=== PATIENT | female | born 1980 | race Two or more races ===

== ENCOUNTER 2024-10-02 09:24 | Outpatient (RCR) | payer MEDICAID, SELFPAY ==
--- NOTE | 2024-10-22 16:51 | CTCCONSULT_ITS ---
Patient: LEROY PAINTING : 1980 MR#: [id number] Page 2 of 3 CONSULTATION NOTE DATE OF CONSULTATION: 10/02/2024 NAME: LEROY PAINTING ACCOUNT: [id number] : 1980 AGE: 44 REFERRING PHYSICIAN: Yoly Ram MD PRIMARY PHYSICIAN: Yoly Ram MD REASON FOR VISIT: Iron deficiency anemia ONCOLOGY HISTORY: DIAGNOSIS: Iron deficiency anemia secondary to blood loss (chronic) [ICD10] D50.0 TREATMENT HISTORY: Care?Plan Start?Date Cycle Day Intent FERRlecit?she 10/02/2024 1 7 Maintenance HISTORY OF PRESENT ILLNESS: 44-year-old female with h/o [place] here for anemia. She have fatigue ,tiredness . OTHER MEDICAL HISTORY/CONDITIONS: Anemia? 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 control med x 5 yrs - 20yrs ago :?2 Live?Births:?2 Age?1st?:?23 MEDICATIONS: 1. omeprazole - 20 mg 1 Daily 2. Singulair - 10 mg 1 tab Daily 3. ZyrTEC - 10 mg 1 tab Daily Medications Last Reconciled by Akua Escobar RN on 10/02/2024 ALLERGIES: No Known Drug Allergies REVIEW OF SYSTEMS: A complete 14-point review of systems was performed and is negative except as noted in interval histo ry. PHYSICAL EXAMINATION: VITAL SIGNS: Temperature?99.8, B/P?128/84, Height?64?inches, Oxygen?Saturation?98% Weight?185?lbs PAIN: 0 - No pain ECOG Performance Status: 0 - Asymptomatic and fully active GENERAL APPEARANCE: Appears well, in no apparent distress, appropriately interactive. HEENT: Normocephalic, no temporal wasting, normal conjunctiva, no scleral icterus, normal hearing, li ps without lesions, neck normal range of motion. CARDIOVASCULAR: Not assessed. PULMONARY: Normal respiratory effort, no respiratory distress or use of accessory muscles, speaking i n full sentences, no tachypnea. EXTREMITIES: No pedal edema or cyanosis. SKIN: Normal skin appearance. NEUROLOGIC: Alert and oriented x4. PSHYCHIATRIC: Appropriate affect, mood normal, behavior normal, intact thought and speech. LABORATORY DATA: I have personally reviewed and interpreted each of the patient?s relevant lab tests, abnormal finding s are below: Date ASSESSMENT/PLAN: Iron deficiency anemia ORDERS: Cbc,cmp,ferritin,iron panel ,ldh and haptoglobin RETURN TO CLINIC: 2 months BILLING AND COMPLIANCE: I reviewed external records from providers outside my specialty as summarized above. I spent a total of 50 minutes on this patient?s care on the day of their visit excluding time spent related to any bi lled procedures. This time includes time spent with the patient as well as time spent documenting in the medical record, reviewing patients records and tests, obtaining history, placing orders, communi cating with other healthcare professionals, counseling the patient, family or caregiver, and/or care coordination for the diagnoses above. Electronically Signed by: Enio Rivero MD T: 4:48 PM CC: PCP: Yoly Ram Referring: Yoly Ram This document was completed utilizing speech recognition software. Grammatical errors, random word in sertions, pronoun errors, and incomplete sentences are an occasional consequence of this system due t o software limitations, ambient noise, and hardware issues. Any formal questions or concerns about th e content, text or information contained within the body of this dictation should be directly address ed to the provider for clarification.
== END 2024-10-16 23:59 | disposition home or self-care (01) ==
LOC: SCTC 09:24
PROVIDERS: Visit Provider Internal Medicine Hematology & Oncology
DX: D50.9 Iron deficiency anemia, unspecified (principal)
CPT/HCPCS: 99213; G0463

== ENCOUNTER 2024-10-30 13:05 | Outpatient (RCR) | payer MEDICAID, SELFPAY | END 2024-11-16 23:59 | disposition home or self-care (01) | LOC: SCTC 13:05 | PROVIDERS: PCP Physician Assistant Medical; Referring Provider Physician Assistant Medical; Visit Provider Internal Medicine Hematology & Oncology | DX: Z53.8 Procedure and treatment not carried out for other reasons (principal) | CPT/HCPCS: J2916; J7050 ==

== ENCOUNTER 2024-12-12 13:20 | Outpatient (RCR) | payer MEDICAID, SELFPAY | END 2024-12-14 23:59 | disposition home or self-care (01) | LOC: SCTC 13:20 | PROVIDERS: PCP Physician Assistant Medical; Referring Provider Physician Assistant Medical; Visit Provider Internal Medicine Hematology & Oncology | DX: D50.9 Iron deficiency anemia, unspecified (principal) | CPT/HCPCS: 96365; 96375; J2916; J2919; J3490; J7040; J7050 ==

== ENCOUNTER → 2024-12-18 | Outpatient (CLI) | payer MEDICAID, SELFPAY ==
--- NOTE | 2024-12-18 11:15 | XR_ITS ---
Examination: Screening digital mammography, bilateral Computer aided detection 3-D breast Tomosynthesis, bilateral Date and time of exam: December 18, 2024 1108 hours Compared to mammograms dating to December 30, 2021 Indication: Screening Technique: Nonmagnified MLO, CC views of the breasts to been obtained, reconstructed from 3-D Tomosynthesis images. R2 computer aided detection program utilized for evaluation of suspicious masses and/or abnormal calcifications. 3-D Tomosynthesis images obtained. Findings: The breasts are heterogeneously dense, which may obscure small masses Benign calcifications No interval suspicious masses Impression: BI-RADS category II: Benign Findings. Recommend 1 year follow-up mammogram.
== END | disposition home or self-care (01) ==
LOC: CDIM 11:03
PROVIDERS: Referring Provider Physician Assistant Medical; Visit Provider Physician Assistant Medical
DX: Z12.31 Encounter for screening mammogram for malignant neoplasm of breast (principal); R92.323 Mammographic fibroglandular density, bilateral breasts; R92.1 Mammographic calcification found on diagnostic imaging of breast
CPT/HCPCS: 77063; 77067

== ENCOUNTER 2025-01-10 13:27 | Outpatient (RCR) | payer MEDICAID, SELFPAY | END 2025-01-14 23:59 | disposition home or self-care (01) | LOC: SCTC 13:27 | PROVIDERS: PCP Physician Assistant Medical; Referring Provider Physician Assistant Medical; Visit Provider Internal Medicine Hematology & Oncology | DX: D50.9 Iron deficiency anemia, unspecified (principal); N92.0 Excessive and frequent menstruation with regular cycle | CPT/HCPCS: 96365; 96375; J2916; J2919; J3490; J7040; J7050 ==

== ENCOUNTER 2025-02-13 13:54 | Outpatient (RCR) | payer MEDICAID, SELFPAY | END 2025-02-13 23:59 | disposition home or self-care (01) | LOC: SCTC 13:54 | PROVIDERS: PCP Physician Assistant Medical; Referring Provider Obstetrics & Gynecology; Visit Provider Nurse Practitioner Family | DX: D50.9 Iron deficiency anemia, unspecified (principal) | CPT/HCPCS: 96365; 99212; J2916; J7040; J7050; G0463 ==

== ENCOUNTER 2025-03-13 13:51 | Outpatient (RCR) | payer MEDICAID, SELFPAY | END 2025-03-16 23:59 | disposition home or self-care (01) | LOC: SCTC 13:51 | PROVIDERS: PCP Physician Assistant Medical; Referring Provider Physician Assistant Medical; Visit Provider Nurse Practitioner Family | DX: D50.9 Iron deficiency anemia, unspecified (principal) | CPT/HCPCS: 96365; J2916; J7050 ==

== ENCOUNTER 2025-03-28 09:12 | Outpatient (RCR) | payer MEDICAID, SELFPAY | END 2025-04-15 23:59 | disposition home or self-care (01) | LOC: SCTC 09:12 | PROVIDERS: PCP Family Medicine; Referring Provider Family Medicine; Visit Provider Nurse Practitioner Family | DX: D50.9 Iron deficiency anemia, unspecified (principal) | CPT/HCPCS: 96365; A4216; J2916; J7040; J7050 ==

== ENCOUNTER 2025-04-25 13:44 | Emergency (ER) | payer MEDICAID, SELFPAY ==
[2025-04-25] VITALS (12 sets, daily range): BP systolic 98–145; BP diastolic 57–83; PULSE 77–99; RESP 16–19; TEMP 36.6–37.5; O2SAT 96–100; BMI 31.9
--- NOTE | 2025-04-25 14:00 | PD.EDRME ---
Rapid Medical Screening Exam RME Arrival date/time: 04/25/25 13:44 44-year-old female presents to the emergency department today stating she was sent by her PCP for low hemoglobin. Patient reports that she had her IUD replaced and has been bleeding since April 19 Chief Complaint: Recheck/Abnormal Lab/Rx Vital signs: Vital Signs Temperature 98.4 F 04/25/25 13:54 Pulse Rate 99 04/25/25 13:54 Respiratory Rate 18 04/25/25 13:54 Blood Pressure 145/81 H 04/25/25 13:54 Pulse Oximetry (%) 100 04/25/25 13:54 Oxygen Delivery Method Room Air 04/25/25 13:54
[2025-04-25 14:25] LABS: Basophils # (Auto) 0.0 Thou/mm3 (0.0-0.2); Basophils % (Auto) 0 % (0-2.5); Eosinophils # (Auto) 0.0 Thou/mm3 (0.0-0.5); Eosinophils % (Auto) 0 % (0-10); Immature Granulocytes Auto 0.06 Thou/mm3 (0.00-0.00); Lymphocytes # (Auto) 2.1 Thou/mm3 (1.0-4.8); Lymphocytes % (Auto) 18 % (10-50); Mean Corpuscular HGB Conc 33.7 g/dl (31.0-37.0); Mean Corpuscular Hemoglobin 30.3 pg (25.0-35.0); Mean Corpuscular Volume 90 fL (80-100); Monocytes # (Auto) 0.8 Thou/mm3 (0.0-0.8); Monocytes % (Auto) 6 % (0-12); Neutrophils # (Auto) 9.0 Thou/mm3 (1.8-7.7); Neutrophils % (Auto) 75 % (37-80); Nucleated Red Blood Cell # 0.00 Thou/mm3 (0.00-0.00); Nucleated Red Blood Cell % 0 /100 WBC (0); Platelet Count 293 Thou/mm3 (140-440); RDW Standard Deviation 51.0 fL (36.4-46.3); Red Blood Count 2.08 Miln/mm3 (4.00-5.20); White Blood Count 12.0 Thou/mm3 (3.6-11.0)
[2025-04-25 14:38] LABS: Hematocrit 18.7 % (36.0-46.0); Hemoglobin 6.3 g/dL (12.0-16.0)
[2025-04-25 14:40] LABS: INR 0.9 (0.9-1.3); Partial Thromboplastin Time 22.9 Seconds (22.0-36.0); Prothrombin Time 10.1 Seconds (9.0-12.2)
[2025-04-25 14:43] LABS: Alanine Aminotransferase 12 U/L (10-49); Albumin, Serum 3.7 gm/dL (3.5-5.0); Albumin/Globulin Ratio 1.6 (1.2-2.2); Alkaline Phosphatase 48 U/L (46-116); Anion Gap 7 (7-16); Aspartate Amino Transferase 14 U/L (0-34); BUN/Creatinine Ratio 10 Ratio (12-20); Bilirubin,Total 0.2 mg/dL (0.3-1.2); Blood Urea Nitrogen 6 mg/dL (9-23); Calcium 8.5 mg/dL (8.3-10.6); Calcium (Corrected) 8.7 mg/dL (8.5-10.1); Carbon Dioxide 28.5 mMol/L (20.0-31.0); Chloride 107 mMol/L (98-107); Creatinine (Component) 0.6 mg/dL (0.6-1.3); Estimated Creatinine Clearance 127.0 mL/min (>60); Globulin 2.3 gm/dL (2.3-3.5); Glucose 111 mg/dL (74-106); Osmolality,Calculated 281 (275-295); Potassium 3.8 mMol/L (3.4-5.1); Sodium 142 mMol/L (136-145); Total Protein 6.0 gm/dL (5.7-8.2); eGFR > 60 See Note
[2025-04-25 14:50] LABS: HCG,Qualitative Serum Negative
[2025-04-25 14:59] LABS: Ferritin 8 ng/mL (7.3-270.7); Iron 11 mcg/dL (50-170); Percent Iron Saturation 3 % (20-55); Total Iron Binding Capacity 362 mcg/dL (250-425); Unsaturated Iron Binding 351 (225-295)
--- NOTE | 2025-04-25 15:06 | PD.EDRECHK ---
ED Recheck Abnl Lab Rx-RME/HPI General Chief Complaint: Recheck/Abnormal Lab/Rx Stated Complaint: Hemoglobin is 6, mild OGOD Time Seen by Provider: 04/25/25 15:04 Arrival date/time: 04/25/25 13:44 RME / HPI RME / HPI narrative: 44-year-old female presents to the emergency department today stating she was sent by her PCP for low hemoglobin. Patient reports that she had her IUD replaced and has been bleeding since April 19. It was heavy for the first 4 days however yesterday and today is very light. Denies any other complaints no medications taken prior to arrival. Patient spoke with Dr Maldonado, and was advised that it was a normal type of bleeding post IUD insertion. Related Data Previous Rx's ?Medication ?Instructions ?Recorded ferrous sulfate 324 mg (65 mg 324 mg PO BID #60 tabs 04/25/25 iron) tablet,delayed release Allergies Allergy/AdvReac Type Severity Reaction Status Date / Time No Known Allergies Allergy Verified 04/25/25 13:52 Review of Systems Review of Systems Narrative Review of Systems: Review of system reviewed and within normal limits except mentioned in HPI ED Exam Narrative Physical exam: VITAL SIGNS: Reviewed. GENERAL APPEARANCE: Alert and interactive, follows commands, no acute distress, HEAD AND FACE: Non-traumatic. ENT: PERRL, pale conjunctiva, eyelid no trauma, Mucous membrane moist. NECK: Supple, nontender, no nuchal rigidity. CHEST: No tenderness, no crepitus, no paradoxical movement, no retractions. LUNGS: Clear, well ventilated, symmetric, no rales, no wheezing, no ronchi, no stridor, good breath sounds bilaterally. HEART: Regular rate, regular rhythm, no murmur, no gallops. ABDOMEN: Soft, positive bowel sounds, nondistended, no guarding, nontender, no rebound, no masses, RECTAL: Deferred. GENITAL: Deferred. NEUROLOGICAL: Gross motor function intact sensory function intact, Appropriate for age. MUSCULOSKELETAL: low back nontender, full range of motion. EXTREMITIES: Nontender, full range of motion. SKIN: Color pink, dry, no rash, no lacerations, no abrasions, no contusions. LYMPHATICS: Deferred. Course Quality Measures none Orders Category Date Time Status Insert IV NOW Care 04/25/25 13:59 Active Transfuse,blood/blood products NOW Care 04/25/25 14:47 Active CBC Stat Lab 04/25/25 14:08 Completed Comprehensive Metabolic Panel Stat Lab 04/25/25 14:08 Completed Ferritin Stat Lab 04/25/25 14:08 Completed HCG,Qualitative Serum Stat Lab 04/25/25 14:08 Completed Iron Panel Stat Lab 04/25/25 14:08 Completed Partial Thromboplastin Time Stat Lab 04/25/25 14:08 Completed Path Review Blood Smear Stat Lab 04/25/25 14:08 Completed Prothrombin Time with INR Stat Lab 04/25/25 14:08 Completed Type and Screen Stat Lab 04/25/25 14:08 Completed prbc [Red Blood Cells] Stat Lab 04/25/25 14:08 Completed Vital Signs Vital signs: Vital Signs Temperature 98.4 F 04/25/25 13:54 Pulse Rate 99 04/25/25 13:54 Respiratory Rate 18 04/25/25 13:54 Blood Pressure 145/81 H 04/25/25 13:54 Pulse Oximetry (%) 100 04/25/25 13:54 Oxygen Delivery Method Room Air 04/25/25 13:54 Recheck / Abnormal Lab / Rx MDM Narrative MDM Narrative:: 44-year-old female presents to the emergency department today stating she was sent by her PCP for low hemoglobin. Patient reports that she had her IUD replaced and has been bleeding since April 19. It was heavy for the first 4 days however yesterday and today is very light. Denies any other complaints no medications taken prior to arrival. Patient spoke with Dr Maldonado, and was advised that it was a normal type of bleeding post IUD insertion. Patient hemoglobin was noted to be 6.3, hematocrit of 18.7. Patient received 2 units of packed RBC. Patient tolerated blood transfusion well. With no posttransfusion reaction noted. Disposition Home. Was advised to follow-up. Dr Maldonado [facility] regarding heavy menses post IUD insertion in few days Patient data External records reviewed:: None Clinical information provided by:: patient Social determinants that could affect healthcare access:: none Patient has the following chronic illnesses:: None How is presenting disease/condition affected by chronic disease/condition?: no chronic disease Evaluation data The following diagnostics were reviewed and interpreted by me:: lab results Lab and/or radiology exams considered but not ordered:: None Interpretation Summary: See results MDM Medications / Prescriptions Medications or Prescriptions considered but not ordered:: None Medication administrations:: 2 units of packed RBC Consultations Consultation(s) initiated? (list below): No Diagnosis Recheck Differential Diagnosis: other (Anemia, dysfunctional uterine bleeding, menometrorrhagia) Most likely diagnosis given after review of the tests above:: Anemia Admission Indicated Admission indicated?: not indicated Explain why admission is indicated or not indicated:: Stable Admission Request Was there a request for admission?: No Disposition Plan Disposition Plan: Discharge Discharge Attestation Discharge Attestation: The patient and all family members were given an opportunity to ask questions and understood the discharge instructions. Discharge instructions specifically effects, indications for sooner follow up or return to the emergency department, and the expected course of current diagnosis. Patient condition: Stable Discharge Plan Plan Patient Disposition: HOME (Self Care) Discharge Disposition comment: Stable Prescriptions/Referrals Prescriptions/Med Rec: New ferrous sulfate 324 mg (65 mg iron) tablet,delayed release (DR/EC) 324 mg PO BID Qty: 60 0RF Referrals: Sil Ram PA-C [Primary Care Provider] - In 1 week Problem List Clinical Impression: Iron deficiency anemia, Heavy menses due to IUD Patient/Caregiver Discharge Instructions Discharge Activity: activity as tolerated Education Materials: Anemia Additional Instructions: Thank you for the opportunity for serving you today. You are stable for discharged . You are advised to: Follow-up with your [facility], if your vaginal bleeding is getting worse. Return to ED for worsening of symptoms Increase oral fluids Take medication as prescribed Print Language: Namibian Stand Alone Forms: Nguyen Award Info., Patient Portal Info Letter
[2025-04-25 15:24] LABS: Path Review Blood Smear Sent to Pathologist
== END 2025-04-25 22:12 | disposition home or self-care (01) ==
PROVIDERS: Nurse Practitioner Primary Care; Emergency Provider Emergency Medicine; PCP Physician Assistant Medical
DX: D50.9 Iron deficiency anemia, unspecified (principal); N92.0 Excessive and frequent menstruation with regular cycle
CPT/HCPCS: 36415; 36430; 80053; 82728; 83540; 83550; 84703; 85025; 85610; 85730; 86850; 86900; 86901; 86923; 99283; P9016

== ENCOUNTER 2025-04-29 15:29 | Emergency (ER) | payer MEDICAID, SELFPAY ==
[2025-04-29 15:52] VITALS: BP 131/78; PULSE 83; RESP 18; TEMP 37.5; O2SAT 100; BMI 33.1
--- NOTE | 2025-04-29 16:34 | EDNOTE_ITS ---
ED Recheck Abnl Lab Rx-RME/HPI General Chief Complaint: Recheck/Abnormal Lab/Rx Stated Complaint: Low iron, dizzy, GOOD Time Seen by Provider: 04/29/25 16:26 Arrival date/time: 04/29/25 15:29 RME / HPI RME / HPI narrative: 44-year-old female presents to the ED with a complaint of dizziness and headache. She was seen here last and diagnosed with anemia due to her hemoglobin of 6.3. She received 2 units of PRBCs at that time. She was feeling good the next day but for the past 2 days she has had a headache and some lightheadedness. He recently had an IUD replaced. She had a very heavy menstrual starting on April 19 that lasted for approximately 5 days and then it slowed down to a normal menstrual period yesterday and today she is only been having minimal bleeding. She denies any fever or chills, abdominal pain or dysuria. Related Data Previous Rx's ?Medication ?Instructions ?Recorded ferrous sulfate 324 mg (65 mg 324 mg PO BID #60 tabs 0 04/25/25 iron) tablet,delayed release amoxicillin 875 mg-potassium 1 tab PO BID #20 tabs clavulanate 125 mg tablet cetirizine 10 mg tablet (Zyrtec) 10 mg PO QDAY PRN all ergy symptoms 04/29/25 #30 tabs Allergies Allergy/AdvReac Type Severity Reaction Status Date / Time No Known Allergies Allergy Verified 04/29/25 15:34 Review of Systems Review of Systems Systems Reviewed: All systems reviewed, normal except as documented Past Medical History Past Medical History CARDIAC: Negative Congestive Heart Failure RESPIRATORY: Negative Chronic Obstructive Pulmonary Disease (COPD) GASTROINTESTINAL: Positive Gastroesophageal Reflux Disease GENITOURINARY: Negative Renal Disease ENDOCRINE: Negative Diabetes Mellitus Type 1 or Diabetes Mellitus Type 2 Social History SMOKING STATUS: Never smoker ED Exam Narrative Physical exam: Alert and oriented, very pleasant 44-year-old female, no acute distress. Conjun ctiva is pale, neck is supple. Regular rate and rhythm, lungs are clear, abdomen is soft and nontender. No CVA tenderness noted. Moves all extremities well. Course Course Course Narrative: Vital signs blood pressure 131/78, pulse 83, respirations 18 and nonlabored, temp 99.5, O2 sat 100% on room air. CBC reveals a mildly elevated white count of 13.1, low H&H of 8.4/25.1 with normal platelets. This hemoglobin and hematocrit did not indicate the need for a transfusion at this time. Patient was advised to follow-up with her primary care physician for regular weekly checks of her hemoglobin with a lab draw. Upon discharge, patient states she has been having a right-sided headache with postnasal drip and the need to clear her throat. She denies any fever or chills but is felt hot on her forehead. Quality Measures none Orders Category Date Time Status CBC Stat Lab 04/29/25 16:47 Completed Vital Signs Vital signs: Vital Signs Temperature 99.5 F 04/29/25 15:52 Pulse Rate 83 04/29/25 15:52 Respiratory Rate 18 04/29/25 15:52 Blood Pressure 131/78 H 04/29/25 15:52 Pulse Oximetry (%) 100 04/29/25 15:52 Oxygen Delivery Method Room Air 04/29/25 15:52 Recheck / Abnormal Lab / Rx Patient data External records reviewed:: [facility] previous records Clinical information provided by:: patient Social determinants that could affect healthcare access:: none Patient has the following chronic illnesses:: Anemia, iron deficiency How is presenting disease/condition affected by chronic disease/condition?: caused by Evaluation data The following diagnostics were reviewed and interpreted by me:: lab results Lab and/or radiology exams considered but not ordered:: N/A Interpretation Summary: As noted above Medications / Prescriptions Medications or Prescriptions considered but not ordered:: N/A Medication administrations:: N/A Consultations Consultation(s) initiated? (list below): No Diagnosis Recheck Differential Diagnosis: other (Encounter for lab recheck for possible blood transfusion.) Most likely diagnosis given after review of the tests above:: Anemia and sinusitis. Admission Indicated Admission indicated?: not indicated Explain why admission is indicated or not indicated:: Patient is stable for discharge Admission Request Was there a request for admission?: No Admission Attestation Admission request attestation: N/A Disposition Plan Disposition Plan: Discharge Discharge Attestation Discharge Attestation: The patient and all family members were given an opportunity to ask questions and understood the discharge instructions. Discharge instructions specifically effects, indications for sooner follow up or return to the emergency department, and the expected course of current diagnosis. Patient condition: Stable Discharge Plan Plan Patient Disposition: HOME (Self Care) Discharge Disposition comment: Stable Prescriptions/Referrals Prescriptions/Med Rec: New amoxicillin-pot clavulanate 875-125 mg tablet 1 tab PO BID Qty: 20 0RF cetirizine [Zyrtec] 10 mg tablet 10 mg PO QDAY PRN (Reason: allergy symptoms) Qty: 30 0RF No Action ferrous sulfate 324 mg (65 mg iron) tablet,delayed release (DR/EC) 324 mg PO BID Qty: 60 0RF Referrals: Sil Ram PA-C [Primary Care Provider] - In 1 week Problem List Clinical Impression: Iron deficiency anemia, Heavy menses due to IUD, Sinusitis Patient/Caregiver Discharge Instructions Education Materials: ED Anemia, Iron-Deficiency (Adult), ED Dysfunctional Uterine Bleeding, ED Sinusitis (Antibiotic Treatment) Additional Instructions: Take the antibiotics as prescribed and complete the course even though you may be feeling better. Take Tylenol for pain control. Follow-up with your primary care physician in 24 to 48 hours. Return to the ED for any new or worsening symptoms. Print Language: Nepalese Stand Alone Forms: Nguyen Award Info., Patient Portal Info Letter PA/EMBEDDED SOFTWARE MANAGER Supervising Physician PA/EMBEDDED SOFTWARE MANAGER Supervising Physician: Dr. Lind
[2025-04-29 16:55] LABS: Basophils # (Auto) 0.0 Thou/mm3 (0.0-0.2); Basophils % (Auto) 0 % (0-2.5); Eosinophils # (Auto) 0.0 Thou/mm3 (0.0-0.5); Eosinophils % (Auto) 0 % (0-10); Hematocrit 25.1 % (36.0-46.0); Immature Granulocytes Auto 0.06 Thou/mm3 (0.00-0.00); Lymphocytes # (Auto) 1.8 Thou/mm3 (1.0-4.8); Lymphocytes % (Auto) 14 % (10-50); Mean Corpuscular HGB Conc 33.5 g/dl (31.0-37.0); Mean Corpuscular Hemoglobin 28.9 pg (25.0-35.0); Mean Corpuscular Volume 86 fL (80-100); Monocytes # (Auto) 0.7 Thou/mm3 (0.0-0.8); Monocytes % (Auto) 5 % (0-12); Neutrophils # (Auto) 10.5 Thou/mm3 (1.8-7.7); Neutrophils % (Auto) 80 % (37-80); Nucleated Red Blood Cell # 0.00 Thou/mm3 (0.00-0.00); Nucleated Red Blood Cell % 0 /100 WBC (0); Platelet Count 353 Thou/mm3 (140-440); RDW Standard Deviation 45.7 fL (36.4-46.3); Red Blood Count 2.91 Miln/mm3 (4.00-5.20); White Blood Count 13.1 Thou/mm3 (3.6-11.0)
[2025-04-29 16:58] LABS: Hemoglobin 8.4 g/dL (12.0-16.0)
== END 2025-04-29 17:49 | disposition home or self-care (01) ==
PROVIDERS: Physician Assistant; Emergency Provider Emergency Medicine; PCP Physician Assistant Medical
DX: D50.9 Iron deficiency anemia, unspecified (principal); N92.0 Excessive and frequent menstruation with regular cycle; J32.9 Chronic sinusitis, unspecified
CPT/HCPCS: 36415; 85025; 99283

== ENCOUNTER 2025-05-15 10:37 | Outpatient (RCR) | payer MEDICAID, SELFPAY | END 2025-05-16 23:59 | disposition home or self-care (01) | LOC: SCTC 10:37 | PROVIDERS: PCP Family Medicine; Referring Provider Family Medicine; Visit Provider Nurse Practitioner Family | DX: D50.9 Iron deficiency anemia, unspecified (principal); N92.4 Excessive bleeding in the premenopausal period; K29.70 Gastritis, unspecified, without bleeding | CPT/HCPCS: 99212; G0463 ==

== ENCOUNTER 2025-06-10 13:46 | Outpatient (RCR) | payer MEDICAID, SELFPAY | END 2025-06-16 23:59 | disposition home or self-care (01) | LOC: SCTC 13:46 | PROVIDERS: PCP Family Medicine; Referring Provider Nurse Practitioner Family; Visit Provider Nurse Practitioner Family | DX: D50.9 Iron deficiency anemia, unspecified (principal); N92.0 Excessive and frequent menstruation with regular cycle; K29.70 Gastritis, unspecified, without bleeding | CPT/HCPCS: 96365; J2916; J7040; J7050 ==

== ENCOUNTER 2025-06-19 14:25 | Outpatient (RCR) | payer MEDICAID, SELFPAY ==
[2025-06-18 16:13] LABS: Basophils # (Auto) 0.0 Thou/mm3 (0.0-0.2); Basophils % (Auto) 0 % (0-2.5); Eosinophils # (Auto) 0.0 Thou/mm3 (0.0-0.5); Eosinophils % (Auto) 0 % (0-10); Hematocrit 32.7 % (36.0-46.0); Hemoglobin 10.1 g/dL (12.0-16.0); Immature Granulocytes Auto 0.02 Thou/mm3 (0.00-0.00); Lymphocytes # (Auto) 1.7 Thou/mm3 (1.0-4.8); Lymphocytes % (Auto) 19 % (10-50); Mean Corpuscular HGB Conc 30.9 g/dl (31.0-37.0); Mean Corpuscular Hemoglobin 26.2 pg (25.0-35.0); Mean Corpuscular Volume 85 fL (80-100); Monocytes # (Auto) 0.5 Thou/mm3 (0.0-0.8); Monocytes % (Auto) 6 % (0-12); Neutrophils # (Auto) 6.4 Thou/mm3 (1.8-7.7); Neutrophils % (Auto) 74 % (37-80); Nucleated Red Blood Cell # 0.00 Thou/mm3 (0.00-0.00); Nucleated Red Blood Cell % 0 /100 WBC (0); Platelet Count 300 Thou/mm3 (140-440); RDW Standard Deviation 60.4 fL (36.4-46.3); Red Blood Count 3.85 Miln/mm3 (4.00-5.20); White Blood Count 8.7 Thou/mm3 (3.6-11.0)
[2025-06-18 16:38] LABS: Alanine Aminotransferase 16 U/L (10-49); Albumin, Serum 4.1 gm/dL (3.5-5.0); Albumin/Globulin Ratio 1.7 (1.2-2.2); Alkaline Phosphatase 47 U/L (46-116); Anion Gap 10 (7-16); Aspartate Amino Transferase 16 U/L (0-34); BUN/Creatinine Ratio 9 Ratio (12-20); Bilirubin,Total 0.2 mg/dL (0.3-1.2); Blood Urea Nitrogen 6 mg/dL (9-23); Calcium 9.5 mg/dL (8.3-10.6); Calcium (Corrected) 9.5 mg/dL (8.5-10.1); Carbon Dioxide 25.0 mMol/L (20.0-31.0); Chloride 107 mMol/L (98-107); Creatinine (Component) 0.7 mg/dL (0.6-1.3); Globulin 2.4 gm/dL (2.3-3.5); Glucose 107 mg/dL (74-106); Osmolality,Calculated 280 (275-295); Potassium 3.4 mMol/L (3.4-5.1); Sodium 142 mMol/L (136-145); Total Protein 6.5 gm/dL (5.7-8.2); eGFR > 60 See Note
== END 2025-07-16 23:59 | disposition home or self-care (01) ==
LOC: SCTC 14:25
PROVIDERS: PCP Family Medicine; Referring Provider Family Medicine; Visit Provider Nurse Practitioner Family
DX: D64.9 Anemia, unspecified (principal); Z87.42 Personal history of other diseases of the female genital tract
CPT/HCPCS: 80053; 85025; 96365; 99212; J2916; J3490; J7040; G0463

== ENCOUNTER 2025-08-05 09:30 | Outpatient (RCR) | payer MEDICAID, SELFPAY | END 2025-08-16 23:59 | disposition home or self-care (01) | LOC: SCTC 09:30 | PROVIDERS: PCP Physician Assistant Medical; Referring Provider Nurse Practitioner Family; Visit Provider Nurse Practitioner Family | DX: D50.0 Iron deficiency anemia secondary to blood loss (chronic) (principal); N93.9 Abnormal uterine and vaginal bleeding, unspecified | CPT/HCPCS: 99212; G0463 ==

== ENCOUNTER 2025-08-07 20:51 | Emergency (ER) | payer MEDICAID, SELFPAY ==
[2025-08-07 20:53] VITALS: BMI 32.9
--- NOTE | 2025-08-07 21:26 | XR_ITS ---
Examination: Pelvic ultrasound, transabdominal, complete Technique: Transabdominal ultrasound of the pelvis performed using grayscale imaging Date and time of exam: August 07, 2025, 2133 hours INDICATIONS: Removal intrauterine device 2 days ago followed by vaginal bleeding FINDINGS: Uterus 10.4 cm Uterine body area of fibroid degeneration 20 x 16 x 18 mm Endometrial stripe 0.8 cm Ovaries obscured by bowel gas Mild free fluid in the cul-de-sac IMPRESSION: Small area of uterine fibroid degeneration 20 x 16 x 18 mm
--- NOTE | 2025-08-07 21:29 | PD.EDVAGBL ---
ED OB Contraction Preg RMI/HPI General Chief complaint: Vaginal Bleeding Stated complaint: POSS ANEMIA HX OF VAG BLEEDING Time Seen by Provider: 08/07/25 21:11 Arrival date/time: 08/07/25 20:51 Limitations: no limitations RME / HPI RME / HPI Narrative: Patient is a 45-year-old female with medical history notable for abnormal vaginal bleeding present emergency department concerns for persistent abnormal vaginal bleeding. Patient states that since she had an IUD placed she has had abnormal vaginal bleeding. She required blood transfusions in the past. She had her IUD removed on Tuesday, had minimal bleeding and then has significant bleeding earlier today however the bleeding has since slowed down significantly. Patient did feel mildly lightheaded. Feels better. Patient denies any abdominal pain. No discharge. Denies fevers, chills, nausea, vomiting. Patient does not have any allergies to medications. Related Data Previous Rx's ?Medication ?Instructions ?Recorded ferrous sulfate 324 mg (65 mg 324 mg PO BID #60 tabs 04/25/25 iron) tablet,delayed release amoxicillin 875 mg-potassium 1 tab PO BID #20 tabs 04/29/25 clavulanate 125 mg tablet cetirizine 10 mg tablet (Zyrtec) 10 mg PO QDAY PRN allergy symptoms 04/29/25 #30 tabs Allergies Allergy/AdvReac Type Severity Reaction Status Date / Time No Known Allergies Allergy Verified 08/07/25 20:56 ED Exam General Limitations: Present no limitations General appearance: Present alert and in no apparent distress Head Head exam: Present atraumatic and normocephalic Eye Eye exam: Present normal appearance and PERRL ENT ENT exam: Present normal exam and normal oropharynx Neck Neck exam: Present normal inspection and full ROM Chest Chest inspection: Present normal inspection; Absent symmetric chest wall rise Respiratory Respiratory exam: Present normal lung sounds bilaterally; Absent respiratory distress Cardiovascular Cardiovascular exam: Present regular rate and normal rhythm Abdominal Exam Abdominal exam: Present soft; Absent distention or tenderness Back Exam Back exam: Present normal inspection Neurological Exam Neurological exam: Present alert and other (No focal neurodeficits) Course Quality Measures none Orders Category Date Time Status US pelvic complete Stat Exams 08/07/25 21:26 Completed Beta HCG,Quantitative Stat Lab 08/07/25 21:19 Completed CBC Stat Lab 08/07/25 21:19 Completed CMP [Comprehensive Metabolic Panel] Stat Lab 08/07/25 21:19 Completed PT [Prothrombin Time with INR] Stat Lab 08/07/25 21:19 Received UA, C/S IF [Urinalysis, C/S if Indicated] Stat Lab 08/07/25 21:29 Completed Vital Signs Vital signs: Vital Signs Temperature 98.4 F 08/07/25 21:33 Pulse Rate 101 H 08/07/25 21:33 Respiratory Rate 18 08/07/25 21:33 Blood Pressure 133/85 H 08/07/25 21:33 Pulse Oximetry (%) 98 08/07/25 21:33 Oxygen Delivery Method Room Air 08/07/25 21:33 Vaginal Bleeding MDM Narrative MDM Narrative: Patient is a 45-year-old female with medical history notable for abnormal uterine bleeding, anemia to the emergency department with concerns for recurrence of dysfunctional uterine bleeding. Vital signs and exam as listed. Concern for , miscarriage, urinary tract infection, fibroids among others. Vital signs and exam as listed.4 Ordered labs. Originally ordered an ultrasound of the pelvis however I canceled it given that patient has a known history of dysfunctional uterine bleeding secondary to our ED and does not have any abdominal pain. Labs without leukocytosis,, no left shift. Patient's hemoglobin is 8.8, it was 10 in June. Patient heart rate was 101, blood pressure was 133/85. Given that patient's bleeding has stopped significantly and she is only spotting right now we will hold off on transfusion. Advised patient that it is important that she return immediately if the bleeding recurs, gets worse, she feels lightheaded or any other symptom of concern. Patient is to follow-up with her apron cleaner within the next 1 to 2 days. On reevaluation patient hemodynamically stable not in distress. Will discharge to home with close return precautions and follow-up with her providers Patient data External records reviewed:: [facility] previous records Clinical information provided by:: patient Social determinants that could affect healthcare access:: none Patient has the following chronic illnesses:: Anemia How is presenting disease/condition affected by chronic disease/condition?: exacerbated by Evaluation data The following diagnostics were reviewed and interpreted by me:: lab results Lab and/or radiology exams considered but not ordered:: None Interpretation Summary: See [facility] Medications / Prescriptions Medications or Prescriptions considered but not ordered:: None Medication administrations:: See above if any Consultations Consultation(s) initiated? (list below): No Diagnosis Vaginal Bleeding Differential Diagnosis: other Most likely diagnosis given after review of the tests above:: Dysfunctional uterine bleeding Admission Indicated Admission indicated?: not indicated Admission Request Was there a request for admission?: No Disposition Plan Disposition Plan: Discharge Discharge Attestation Discharge Attestation: The patient and all family members were given an opportunity to ask questions and understood the discharge instructions. Discharge instructions specifically effects, indications for sooner follow up or return to the emergency department, and the expected course of current diagnosis. Patient condition: Stable Discharge Plan Plan Patient Disposition: HOME (Self Care) Prescriptions/Referrals Prescriptions/Med Rec: No Action ferrous sulfate 324 mg (65 mg iron) tablet,delayed release (DR/EC) 324 mg PO BID Qty: 60 0RF amoxicillin-pot clavulanate 875-125 mg tablet 1 tab PO BID Qty: 20 0RF cetirizine [Zyrtec] 10 mg tablet 10 mg PO QDAY PRN (Reason: allergy symptoms) Qty: 30 0RF Problem List Clinical Impression: Vaginal bleeding Patient/Caregiver Discharge Instructions Education Materials: Understanding Uterine Bleeding Additional Instructions: Please follow-up with your primary care doctor as well as apron cleaner within the next 1 to 2 days. I recommend that you do not get an IUD anymore given that your abnormal vaginal bleeding is associated with the use of your IUD. Return immediately if you have worsening symptoms, shortness of breath, feel lightheaded or any other symptom of concern. Print Language: Peruvian Stand Alone Forms: [employer] Award Info., Patient Portal Info Letter
[2025-08-07 21:31] LABS: Basophils # (Auto) 0.0 Thou/mm3 (0.0-0.2); Basophils % (Auto) 0 % (0-2.5); Eosinophils # (Auto) 0.1 Thou/mm3 (0.0-0.5); Eosinophils % (Auto) 1 % (0-10); Hematocrit 27.1 % (36.0-46.0); Immature Granulocytes Auto 0.02 Thou/mm3 (0.00-0.00); Lymphocytes # (Auto) 2.8 Thou/mm3 (1.0-4.8); Lymphocytes % (Auto) 34 % (10-50); Mean Corpuscular HGB Conc 32.5 g/dl (31.0-37.0); Mean Corpuscular Hemoglobin 26.2 pg (25.0-35.0); Mean Corpuscular Volume 81 fL (80-100); Monocytes # (Auto) 0.7 Thou/mm3 (0.0-0.8); Monocytes % (Auto) 9 % (0-12); Neutrophils # (Auto) 4.4 Thou/mm3 (1.8-7.7); Neutrophils % (Auto) 55 % (37-80); Nucleated Red Blood Cell # 0.00 Thou/mm3 (0.00-0.00); Nucleated Red Blood Cell % 0 /100 WBC (0); Platelet Count 260 Thou/mm3 (140-440); RDW Standard Deviation 56.8 fL (36.4-46.3); Red Blood Count 3.36 Miln/mm3 (4.00-5.20); White Blood Count 8.1 Thou/mm3 (3.6-11.0)
[2025-08-07 21:33] VITALS: BP 133/85; PULSE 101; RESP 18; TEMP 36.9; O2SAT 98
[2025-08-07 21:35] LABS: Collection Type, Urine Clean Catch
[2025-08-07 21:45] LABS: Bilirubin,Urine Negative (Negative); Blood,Urine 3+ (Negative); Clarity,Urine Bloody (Clear/Hazy); Color,Urine Amber (Lt Yel-Yel); Culture Indicated,Urine Not Indicated; Glucose, Urine Negative (Negative); Ketones,Urine Trace (Negative); Leukocyte Esterase,Urine Positive (Negative); Nitrite,Urine Negative (Negative); PH,Urine 6.0 (5.0-7.0); Protein,Urine 1+ (Neg - Trace); RBC,Urine 2713 /hpf (0-3); Specific Gravity,Urine 1.032 (1.001-1.035); Squamous Epithelial Cell,Urine 1 /hpf (0-5); Urobilinogen,Urine Negative mg/dL (0.0-1.0); WBC,Urine 2 /hpf (0-5)
[2025-08-07 21:47] LABS: Hemoglobin 8.8 g/dL (12.0-16.0)
[2025-08-07 21:57] LABS: Alanine Aminotransferase 15 U/L (10-49); Albumin, Serum 4.0 gm/dL (3.5-5.0); Albumin/Globulin Ratio 1.9 (1.2-2.2); Alkaline Phosphatase 49 U/L (46-116); Anion Gap 10 (7-16); Aspartate Amino Transferase 16 U/L (0-34); BUN/Creatinine Ratio 16 Ratio (12-20); Beta HCG,Quantitative < 1 mIU/mL (<5.0); Bilirubin,Total < 0.2 mg/dL (0.3-1.2); Blood Urea Nitrogen 11 mg/dL (9-23); Calcium 8.7 mg/dL (8.3-10.6); Calcium (Corrected) 8.7 mg/dL (8.5-10.1); Carbon Dioxide 26.0 mMol/L (20.0-31.0); Chloride 108 mMol/L (98-107); Creatinine (Component) 0.7 mg/dL (0.6-1.3); Estimated Creatinine Clearance 105.5 mL/min (>60); Globulin 2.1 gm/dL (2.3-3.5); Glucose 116 mg/dL (74-106); Osmolality,Calculated 287 (275-295); Potassium 3.6 mMol/L (3.4-5.1); Sodium 144 mMol/L (136-145); Total Protein 6.1 gm/dL (5.7-8.2); eGFR > 60 See Note
[2025-08-07 22:12] LABS: INR 0.9 (0.9-1.3); Prothrombin Time 9.8 Seconds (9.0-12.2)
== END 2025-08-07 23:05 | disposition home or self-care (01) ==
LOC: SERX 21:49
PROVIDERS: Emergency Provider Emergency Medicine; PCP Family Medicine
DX: N93.8 Other specified abnormal uterine and vaginal bleeding (principal)
CPT/HCPCS: 36415; 76856; 80053; 81001; 84702; 85025; 85610; 86850; 86900; 86901; 99283

== ENCOUNTER 2025-09-04 20:16 | Emergency (ER) | payer MEDICAID, SELFPAY ==
[2025-09-04 20:19] VITALS: BMI 32.9
--- NOTE | 2025-09-04 20:28 | EDNOTE_ITS ---
ED SOB =RME/HPI General Chief Complaint: Shortness of Breath/Dyspnea Stated Complaint: DYSPNEA HX OF ANEMIA Time Seen by Provider: 09/04/25 20:27 Arrival date/time: 09/04/25 20:16 RME / HPI RME / HPI Narrative: DR. LEMONS MAIN ED EVALUATION: Patient with chronic anemia secondary to menorrhagia pending iron infusion notes acute and chronic shortness of breath of increasing 2-3 days. No fever, chills, vomiting, or diarrhea. Patient has been started on ABX 4 days [employer] for pharyngitis. No lower extremity pain or swelling. PE Risk Factors: Negative for prolonged immobilization, DVT, tobacco, recent surgery, or hormonal therapy. PMH: GERD, Anemia PSH: Non-contributory Allergies: NKDA Social: No tobacco, no alcoholism or illicit drug abuse Related Data Previous Rx's ?Medication ?Instructions ?Recorded ferrous sulfate 324 mg (65 mg 324 mg PO BID #60 tabs 0 04/25/25 iron) tablet,delayed release amoxicillin 875 mg-potassium 1 tab PO BID #20 tabs clavulanate 125 mg tablet cetirizine 10 mg tablet (Zyrtec) 10 mg PO QDAY PRN all ergy symptoms 04/29/25 #30 tabs Allergies Allergy/AdvReac Type Severity Reaction Status Date / Time No Known Allergies Allergy Verified 09/04/25 20:21 Review of Systems Review of Systems Systems Reviewed: All systems reviewed, normal except as documented Past Medical History Past Medical History HEMATOLOGIC: Positive Anemia ED Exam Narrative Physical exam: GEN. APPEARANCE: The patient is alert awake oriented X-3 under no distress, lying down comfortably, does not look ill/toxic. Patient has good eye contact. Patient is cooperative. Mildly tachycardic. VITALS: All vitals were reviewed and the pulse ox is 97%, which is normal according to my interpretation HEENT: Normocephalic, atraumatic and nontender. Pupils are equal and reactive. Oral mucosa is moist. NECK: Supple, nontender, no meningismus, no JVD. There is no thyromegaly and no lymphadenopathy. CHEST: Nontender on palpation no deformity and no crepitus. CARDIOVASCULAR: Mildly tachycardic, no murmur or gallop rub or extra beats. LUNGS: Clear to auscultation bilaterally with symmetrical chest rise. No laboring tachypnea or wheezing. No intercostal subcostal retraction. No rales and no rhonchi. ABDOMEN: Soft, flat, nontender to palpation, no guarding or rebound tenderness. There are no abnormal masses palpated. No pulsatile masses or bruits. Active and normal bowel sounds. EXTREMITIES: Normal inspection and palpation. No edema or tenderness. No cyanosis. Patient is able to move all 4 extremities well SKIN: Warm and dry, no rashes noted. MUSCULOSKELETAL: No lumbar or midline bony tenderness. There is no CVA tend erness. No paraspinal muscle spasm or tenderness. NEURO: Cranial nerves II through XII grossly intact. There are no focal neurologic deficits noted. GCS is 15 PSYCHIATRIC: Patient is in normal mood and affect, cooperative. LYMPHATICS: No major lymphadenopathy noted. Course Quality Measures none Orders Category Date Time Status XR chest 1V portable Stat Exams 09/04/25 20:36 Completed CBC [CBC] Stat Lab 09/04/25 21:04 Completed CMP [Comprehensive Metabolic Panel] Stat Lab 09/04/25 21:04 Completed D-Dimer Stat Lab 09/04/25 21:04 Completed HCG Qualitative,Urine Stat Lab 09/04/25 21:44 Completed Urinalysis, C/S if Indicated Stat Lab 09/04/25 21:44 Completed Vital Signs Vital signs: Vital Signs Temperature 98.5 F 09/04/25 20:56 Pulse Rate 101 H 09/04/25 20:56 Respiratory Rate 18 09/04/25 20:56 Blood Pressure 128/83 09/04/25 20:56 Pulse Oximetry (%) 97 09/04/25 20:56 Oxygen Delivery Method Room Air 09/04/25 20:56 Shortness of Breath / Dyspnea MDM Narrative MDM Narrative:: Scribe Attestation: Bekah Zapata am scribing for and in the presence of Dr. Betancourt. Provider Notation: Although this document has been carefully reviewed, there may still be some phonetic and other typographical errors. These errors are purely grammatical due to imperfections in the software program and should not be construed in any way to compromise the substance of the patient's medical care during this visit. Patient with chronic anemia secondary to menorrhagia pending iron infusion notes acute and chronic shortness of breath of increasing 2-3 days. No fever, chills, vomiting, or diarrhea. Please see PE findings. Laboratory markers demonstrate a hemoglobin of 7.9, D-Dimer is unremarkable with a negative PERC score, will not pursue diagnosis of PE at this time. Reassured and instructed to F/U with iron infusion as scheduled. Precautionary instructions issued. Patient data External records reviewed:: [facility] previous records (Reviewed prior ED records from 08/07/25. Patient was seen for Vaginal bleeding.) Clinical information provided by:: patient Social determinants that could affect healthcare access:: none Patient has the following chronic illnesses:: Anemia, GERD How is presenting disease/condition affected by chronic disease/condition?: exacerbated by Evaluation data The following diagnostics were reviewed and interpreted by me:: lab results and radiology exam(s) Lab and/or radiology exams considered but not ordered:: None Interpretation Summary: RADIOLOGY Chest X-Ray: FINDINGS: Normal heart size Lungs are clear Osseous structures are intact IMPRESSION: No active disease Medications / Prescriptions Medications or Prescriptions considered but not ordered:: None Medication administrations:: See above if any Consultations Consultation(s) initiated? (list below): No Diagnosis Shortness of Breath Differential Diagnosis: congestive heart failure, community acquired pneumonia, pulmonary embolism and other (Asthma, COPD, Bronchitis) Most likely diagnosis given after review of the tests above:: Chronic anemia, Dyspnea Admission Indicated Admission indicated?: not indicated Explain why admission is indicated or not indicated:: Patient does not meet admission criteria Admission Request Was there a request for admission?: No Disposition Plan Disposition Plan: Discharge Discharge Attestation Discharge Attestation: The patient and all family members were given an opportunity to ask questions and understood the discharge instructions. Discharge instructions specifically effects, indications for sooner follow up or return to the emergency department, and the expected course of current diagnosis. Patient condition: Stable Discharge Plan Plan Patient Disposition: HOME (Self Care) Discharge Disposition comment: stable Prescriptions/Referrals Prescriptions/Med Rec: No Action ferrous sulfate 324 mg (65 mg iron) tablet,delayed release (DR/EC) 324 mg PO BID Qty: 60 0RF amoxicillin-pot clavulanate 875-125 mg tablet 1 tab PO BID Qty: 20 0RF cetirizine [Zyrtec] 10 mg tablet 10 mg PO QDAY PRN (Reason: allergy symptoms) Qty: 30 0RF Referrals: Sil Ram PA-C [Primary Care Provider] - In 1 week Problem List Clinical Impression: Chronic anemia, Dyspnea Impression comment: Chronic anemia/dyspnea Patient/Caregiver Discharge Instructions Discharge Activity: activity as tolerated Education Materials: Anemia, ED Shortness of Breath (Dyspnea) Additional Instructions: Follow-up for iron transfusion and medication as directed. Return if worsening Print Language: Tunisian Stand Alone Forms: [employer] Award Info., Patient Portal Info Letter
--- NOTE | 2025-09-04 20:36 | XR_ITS ---
EXAMINATION: PA chest single view TECHNIQUE: Upright PA chest single view Date and time: September 04, 2025, 2036 hours INDICATIONS: Chronic shortness of breath worse the last 3 days FINDINGS: Normal heart size Lungs are clear Osseous structures are intact IMPRESSION: No active disease
[2025-09-04 20:56] VITALS: BP 128/83; PULSE 101; RESP 18; TEMP 36.9; O2SAT 97
[2025-09-04 21:36] LABS: Basophils # (Auto) 0.0 Thou/mm3 (0.0-0.2); Basophils % (Auto) 0 % (0-2.5); Eosinophils # (Auto) 0.2 Thou/mm3 (0.0-0.5); Eosinophils % (Auto) 2 % (0-10); Hematocrit 25.6 % (36.0-46.0); Immature Granulocytes Auto 0.03 Thou/mm3 (0.00-0.00); Lymphocytes # (Auto) 2.0 Thou/mm3 (1.0-4.8); Lymphocytes % (Auto) 27 % (10-50); Mean Corpuscular HGB Conc 30.9 g/dl (31.0-37.0); Mean Corpuscular Hemoglobin 24.2 pg (25.0-35.0); Mean Corpuscular Volume 79 fL (80-100); Monocytes # (Auto) 0.6 Thou/mm3 (0.0-0.8); Monocytes % (Auto) 8 % (0-12); Neutrophils # (Auto) 4.6 Thou/mm3 (1.8-7.7); Neutrophils % (Auto) 63 % (37-80); Nucleated Red Blood Cell # 0.00 Thou/mm3 (0.00-0.00); Nucleated Red Blood Cell % 0 /100 WBC (0); Platelet Count 326 Thou/mm3 (140-440); RDW Standard Deviation 50.4 fL (36.4-46.3); Red Blood Count 3.26 Miln/mm3 (4.00-5.20); White Blood Count 7.3 Thou/mm3 (3.6-11.0)
[2025-09-04 21:38] LABS: Hemoglobin 7.9 g/dL (12.0-16.0)
[2025-09-04 21:46] VITALS: BP 121/81; PULSE 84; RESP 18; TEMP 37.5; O2SAT 98
[2025-09-04 21:51] LABS: Collection Type, Urine Clean Catch
[2025-09-04 21:53] LABS: Alanine Aminotransferase 14 U/L (10-49); Albumin, Serum 4.4 gm/dL (3.5-5.0); Albumin/Globulin Ratio 2.0 (1.2-2.2); Alkaline Phosphatase 49 U/L (46-116); Anion Gap 8 (7-16); Aspartate Amino Transferase 16 U/L (0-34); BUN/Creatinine Ratio 7 Ratio (12-20); Bilirubin,Total 0.2 mg/dL (0.3-1.2); Blood Urea Nitrogen < 5 mg/dL (9-23); Calcium 8.6 mg/dL (8.3-10.6); Calcium (Corrected) 8.6 mg/dL (8.5-10.1); Carbon Dioxide 23.8 mMol/L (20.0-31.0); Chloride 110 mMol/L (98-107); Creatinine (Component) 0.7 mg/dL (0.6-1.3); Estimated Creatinine Clearance 105.5 mL/min (>60); Globulin 2.2 gm/dL (2.3-3.5); Glucose 113 mg/dL (74-106); Osmolality,Calculated 281 (275-295); Potassium 3.6 mMol/L (3.4-5.1); Sodium 142 mMol/L (136-145); Total Protein 6.6 gm/dL (5.7-8.2); eGFR > 60 See Note
[2025-09-04 21:58] LABS: Bilirubin,Urine Negative (Negative); Blood,Urine Negative (Negative); Clarity,Urine Clear (Clear/Hazy); Color,Urine Colorless (Lt Yel-Yel); Culture Indicated,Urine Not Indicated; Glucose, Urine Negative (Negative); Ketones,Urine Negative (Negative); Leukocyte Esterase,Urine Negative (Negative); Nitrite,Urine Negative (Negative); PH,Urine 6.5 (5.0-7.0); Protein,Urine Negative (Neg - Trace); RBC,Urine 2 /hpf (0-3); Specific Gravity,Urine 1.011 (1.001-1.035); Squamous Epithelial Cell,Urine 4 /hpf (0-5); Urobilinogen,Urine Negative mg/dL (0.0-1.0); WBC,Urine < 1 /hpf (0-5)
[2025-09-04 22:01] LABS: HCG Qualitative,Urine Negative
[2025-09-04 22:44] LABS: D-Dimer < 250 ng/mL (<600)
[2025-09-04 23:56] VITALS: BP 136/94; PULSE 96; RESP 18; TEMP 37.3; O2SAT 99
== END 2025-09-05 00:02 | disposition home or self-care (01) ==
PROVIDERS: Emergency Provider Emergency Medicine; PCP Physician Assistant Medical
DX: D64.9 Anemia, unspecified (principal)
CPT/HCPCS: 36415; 71045; 80053; 81001; 81025; 85025; 85379; 99283

== ENCOUNTER 2025-10-14 13:38 | Outpatient (RCR) | payer MEDICAID, SELFPAY | END 2025-10-16 23:59 | disposition home or self-care (01) | LOC: SCTC 13:38 | PROVIDERS: PCP Physician Assistant Medical; Referring Provider Physician Assistant Medical; Visit Provider Nurse Practitioner Family | DX: D50.0 Iron deficiency anemia secondary to blood loss (chronic) (principal); N92.0 Excessive and frequent menstruation with regular cycle | CPT/HCPCS: 96365; J2916; J3420; J3490; J7040 ==